=== PATIENT | female | born 1965 | race Caucasian/White ===

== ENCOUNTER 2016-11-11 13:38 | Emergency (ER) | payer OTHER ==
[~2016-11-11] VITALS: Ht 170.2 cm; Wt 112.0 kg
[2016-11-11 13:45] VITALS: BP 168/100
--- NOTE | 2016-11-11 13:48 | NUR ---
Patient ambulated to bed 07.
--- NOTE | 2016-11-11 13:59 | NUR ---
51/F presents to ED for evaluation of right hand pain x1 week. Pt denies any trauma or injury. Pt states " I think it's from my blood clot." I asked the patient why she thought her hand pain was related to her clot and she replied "Because it swelled." Pt states she had a blood clot to left leg in May 2016 when she was living in [place]. Pt denies any hospital admissions but states she was placed on a blood thinner but does not recall the name. Pt states "It's a small brown pill. I don't take it anymore." Pt c/o 04/13 pain to right hand, radiating up right arm, numbness and tingling, constant, non provoked. Denies chest pain, SOB. Denies N/V/D. Denies s/s of UTI. Pt states she took Aleve prior to coming to ED with no relief. Patient is AOX4, clear speech. Calm and relaxed, no visible signs of distress noted. VSS.
--- NOTE | 2016-11-11 14:08 | NUR ---
Viviana seay in [facility] - 11/11/16 at [address] Avina evaluating patient at bedside.
--- NOTE | 2016-11-11 14:16 | NUR ---
Patient requesting an ice pack for her right hand. Ice pack provided. Pt also mentioned she was having a foul odor to urine. Denies any dysuria, polyuria, nocturia, burning with urination. UA collected.
--- NOTE | 2016-11-11 14:36 | NUR ---
Dr. Avina evaluating patient at bedside.
--- NOTE | 2016-11-11 14:55 | NUR ---
US at bedside.
--- NOTE | 2016-11-11 15:34 | NUR ---
Patient requesting to have pain medication. Pt continues to c/o 04/13 pain. Pt states "Can I have Tramadol? I don't want any narcotics. Tramadol usually works for me." Patient states she is driving herself home. Dr. Avina made aware.
[2016-11-11] MEDS ORDERED: traMADol 50 MG TAB PO ONE (15:40)
--- NOTE | 2016-11-11 16:39 | NUR ---
Patient appears to be resting comfortably in bed. Vital Signs within normal limits. Respirations even and unlabored.
[2016-11-11 17:20] VITALS: BP 154/95
--- NOTE | 2016-11-11 17:20 | NUR ---
Chart checked and completed. The patient's care was reviewed and supervised by Rita Lira RN.
== END 2016-11-11 17:20 | disposition home or self-care (01) ==
LOC: MED 13:47
DX: S46.911A Strain of unspecified muscle, fascia and tendon at shoulder and upper arm level, right arm, initial encounter (principal); X50.0XXA Overexertion from strenuous movement or load, initial encounter; Y93.89 Activity, other specified; Y92.89 Other specified places as the place of occurrence of the external cause; Y99.8 Other external cause status
CPT/HCPCS: 81002; 81025; 93971; 99284; Q0092